=== PATIENT | male | born 1970 | race Caucasian/White ===

== ENCOUNTER 2023-08-22 15:22 | Inpatient (IN) | payer BC ==
[~2023-08-22] VITALS: Ht 193 cm; Wt 101.2 kg
[2023-08-22] VITALS (19 sets, daily range): BP systolic 124–159; BP diastolic 79–109
[~2023-08-22 15:22] MED LIST: Ativan1 MG PO; DIPH50 PO; EPIN.3I IM; METPRE4DP PO; Omeprazole20 M1; RANI150 PO; Viagra100 MG PO
[2023-08-22 16:00] LABS: PCO2 Venous 62 mmHg (38-42); pH Blood Venous 7.21 (7.34-7.37)
[2023-08-22 16:00] LABS: Calcium, Ionized (POC) 1.24 mmol/L (1.10-1.46); Chloride (POC) 103 mmol/L (98-108); Creatinine (POC) 1.1 mg/dL (0.8-1.3); Glucose (ISTAT POC) 105 mg/dL (70-99); Hemoglobin (POC) 18.4 g/dL (13.5-17.5); Potassium (POC) 4.2 mmol/L (3.5-5.5); Sodium (POC) 143 mmol/L (135-148); Total CO2 (POC) 28 mmol/L (21-32)
[2023-08-22 16:01] LABS: Base Excess Venous -3.2 mmol/L; Bicarbonate Venous 19.4 mmol/L (24.0-30.0)
[2023-08-22 16:06] LABS: BASOPHILS ABSOLUTE AUTO 0.04 K/mm3 (0.00-0.23); BASOPHILS PERCENT AUTO 1 % (0-2); EOSINOPHILS ABSOLUTE AUTO 0.16 K/mm3 (0.00-0.68); EOSINOPHILS PERCENT AUTO 2 % (0-6); Hemoglobin 18.9 g/dL (13.5-17.5); IMMATURE GRAN ABSOLUTE AUTO 0.03 K/mm3 (0.00-0.10); IMMATURE GRAN PERCENT AUTO 0 % (0-1); LYMPHOCYTES ABSOLUTE AUTO 2.68 K/mm3 (0.84-5.20); LYMPHOCYTES PERCENT AUTO 32 % (21-46); MONOCYTES ABSOLUTE AUTO 0.68 K/mm3 (0.16-1.47); MONOCYTES PERCENT AUTO 8 % (4-13); Mean Corpuscular HGB 31.6 pg (26.0-34.0); Mean Corpuscular Volume 90 fL (80-100); Mean Platelet Volume 10.2 fL (9.1-12.4); NEUTROPHILS ABSOLUTE AUTO 4.67 K/mm3 (1.96-9.15); NEUTROPHILS PERCENT AUTO 57 % (41-73); Platelet Count 152 K/mm3 (150-400); RDW Coefficient Variation 12.1 % (11.7-14.2); RDW Standard Deviation 39.5 fL (35.1-46.3); Red Blood Cell Count 5.99 M/mm3 (4.30-5.90); White Blood Cell Count 8.26 K/mm3 (4.00-11.30)
[2023-08-22 16:30] LABS: Albumin, Blood 4.3 g/dL (3.4-5.0); Bilirubin, Total 0.7 mg/dL (0.1-1.0); Bun/Creatinine Ratio 19.3 (12.0-20.0); Calcium, Blood 9.7 mg/dL (8.5-10.1); Creatinine, Blood 0.98 mg/dL (0.60-1.20); Globulin, Blood 4.5 g/dL (2.2-4.0); Potassium, Blood 4.6 mmol/L (3.5-5.5); Total Protein, Blood 8.8 g/dL (6.4-8.2)
[2023-08-22] MEDS ORDERED: Ventolin/Proventil INH (16:45)
[2023-08-22] MEDS ORDERED: BUSPIRONE HCL30 M1 PO (16:46)
[2023-08-22] MEDS ORDERED: Advair Diskus 250-50 INH (16:47)
[2023-08-22] MEDS ORDERED: LOSA25 PO (16:48)
--- NOTE | 2023-08-22 17:10 | NUR ---
CARE ASSUMPTION PT ARRIVING TO ICU 4 FROM PILE OPERATOR. PT IS AWAKE ALERT/ORIENTED. PT DENYING ANY CHEST PAIN OR PRESSURE AT THIS TIME. PT'S SPO2 >94% ON RM AIR. MONITOR SHOWING SR 80'S W ST ELEVATION. BP ELEVATED 140'S/100'S. PT HAS TR BAND IN PLACE ON R RADIAL THAT IS C/D/I W 12ML AIR INFLATED.
--- NOTE | 2023-08-22 18:18 | NUR ---
"Spiritual Care | Nurse Request This dam worker was called to the ED to support a young family member of the Pt. Pt. had been stablized by the time this dam worker arrived. Sat with Pts. daughter and facilitated a life review in the ED consult room until her mother arrived. When mother arrived this dam worker escorted the family to see the Pt. and then follow the Pt. to the [employer] where they waited in the waiting area. When Pts. father (a battery test engineer) arrived, we prayed with the family. This dam worker left the Pts. father take the lead of spiritual care. Family verbalized gratitude for the spiritual care visit."
--- NOTE | 2023-08-22 18:33 | NUR ---
DAY SHIFT SUMMARY PT ARRIVED TO ICU AT 1709 FROM THE SENIOR STRATEGY MANAGER. PT HAS DENIED ANY CP OR PRESSURE SINCE ARRIVAL. BP REMAINS ELEVATED W DBP IN THE 100'S. MONITOR SHOWING SR 70'S-80'S W NO ECTOPY. SPO2 >92% ON RM AIR. PT HAS REMANIED ALERT AND ORIENTED SINCE ARRIVAL COMMUNICATING APPROPRIATELY W STAFF. PT STARTED ON CARDIAC DIET PER DR. WINTER AND GIVEN WATER. NS RUNNING AT 200ML/HR X [address] SETH. PT HAS FAMILY AT BEDSIDE AND DENIES ANY FURTHER NEEDS AT THIS TIME. WILL REPORT TO ONCOMING RN.
--- NOTE | 2023-08-22 19:39 | NUR ---
ASSUMED CARE PT IS A&O X4; SPO2 >92% ON RA; MAP >65; RATE IN THE 60'S. PT DENIES CP OR NAUSEA. STATES THAT HE FELT "SLIGHT SHORTNESS OF BREATH" W/ EXERTION AND THAT PT WAS FEELING "MILD" PAIN IN RIBS. OTHERWISE RESTING W/ FAMILY AT BEDSIDE. 10ML IN TR BAND AT START OF SHIFT PER MAGDA OBREGON. ASPIRATING AIR PER ORDER.
[2023-08-23] VITALS (17 sets, daily range): BP systolic 103–165; BP diastolic 60–102
--- NOTE | 2023-08-23 03:39 | NUR ---
UPDATE IN TO DO AM EKG, PT INFORMED THIS RN THAT HE WAS EXPERIENCING 3/10 CP STARTING "A BIT BEFORE MIDNIGHT". STATED "DIDN'T THINK IT WAS WORTH MENTIONING". PT GIVEN 1 NITROGLYCERIN TABLET AT THIS TIME.
--- NOTE | 2023-08-23 03:55 | NUR ---
UPDATE SECOND DOSE OF NITROGLYCERIN GIVEN W/ NO CHANGE IN PAIN. PT COMPLAINING OF LIGHTHEADEDNESS AND NAUSEA SO 3RD DOSE HELD. TYLENOL GIVEN AND PALPATION OF CHEST PERFORMED AGAIN; PT STATES "I THINK IT'S FROM WHEN THEY SHOCKED ME".
[2023-08-23 03:58] LABS: BASOPHILS ABSOLUTE AUTO 0.03 K/mm3 (0.00-0.23); BASOPHILS PERCENT AUTO 0 % (0-2); EOSINOPHILS ABSOLUTE AUTO 0.23 K/mm3 (0.00-0.68); EOSINOPHILS PERCENT AUTO 2 % (0-6); Hematocrit 41.9 % (37.0-53.0); Hemoglobin 15.2 g/dL (13.5-17.5); IMMATURE GRAN ABSOLUTE AUTO 0.05 K/mm3 (0.00-0.10); IMMATURE GRAN PERCENT AUTO 1 % (0-1); LYMPHOCYTES ABSOLUTE AUTO 1.48 K/mm3 (0.84-5.20); LYMPHOCYTES PERCENT AUTO 14 % (21-46); MONOCYTES PERCENT AUTO 9 % (4-13); Mean Corpuscular HGB 31.7 pg (26.0-34.0); Mean Corpuscular HGB Conc 36.3 g/dL (31.5-36.5); Mean Corpuscular Volume 88 fL (80-100); Mean Platelet Volume 10.1 fL (9.1-12.4); NEUTROPHILS PERCENT AUTO 74 % (41-73); Platelet Count 218 K/mm3 (150-400); RDW Coefficient Variation 12.3 % (11.7-14.2); RDW Standard Deviation 39.6 fL (35.1-46.3); Red Blood Cell Count 4.79 M/mm3 (4.30-5.90); White Blood Cell Count 10.39 K/mm3 (4.00-11.30)
--- NOTE | 2023-08-23 04:23 | NUR ---
UPDATE PT STATES THAT TYLENOL HELPED REDUCE PAIN. WHEN ASKED PAIN RATING, PT STATED 3 INITIALLY AND 3 ON REASSESSMENT. CLARIFIED W/ PT AND PT STATED INITIALLY "PROBABLY MORE OF A 5" AND THAT THE PAIN IS DECREASED.
[2023-08-23 04:45] LABS: Albumin, Blood 3.2 g/dL (3.4-5.0); Albumin/Globulin Ratio 0.9 (0.8-1.8); Bilirubin, Total 0.8 mg/dL (0.1-1.0); Bun/Creatinine Ratio 21.8 (12.0-20.0); Calcium, Blood 8.7 mg/dL (8.5-10.1); Creatinine, Blood 0.87 mg/dL (0.60-1.20); Globulin, Blood 3.4 g/dL (2.2-4.0); Potassium, Blood 3.8 mmol/L (3.5-5.5)
[2023-08-23 05:15] LABS: Total Protein, Blood 6.6 g/dL (6.4-8.2)
--- NOTE | 2023-08-23 05:45 | NUR ---
SHIFT SUMMARY NO ACUTE EVENTS SINCE LAST NOTE. PT RESTING QUIETLY/SLEEPING AT THIS TIME. RATE IN THE 60-70'S; SPO2 >92% ON RA; MAP >65. TR BAND OFF; BRACE IN PLACE. SITE FREE OF OOZING AND HEMATOMA. SALINE LOCKED AT THIS TIME.
--- NOTE | 2023-08-23 06:17 | NUR ---
UPDATE PT DENYING CP AT THIS TIME.
--- NOTE | 2023-08-23 11:48 | NUR ---
AM SUMMARY: PT HAS BEEN A&Ox4, ANSWERING QUESTIONS APPROPRIATELY, ABLE TO MAKE NEEDS KNOWN. PT DENIES SOB, O2 SATS MAINTAINED >93% ON RA. PT DENIES CHEST PAIN T/OUT MORNING. PER REPORT, PT DID C/O CHEST PAIN AND WAS MEDICATED DURING NOC SHIFT, PAIN WAS REPRODUCABLE AND ALLEVIATED W/TYLENOL. R RADIAL SITE HAS BEEN RECOVERED AND IS WNL. PT INDEPENDENT IN ROOM, USING CALL LIGHT APPROPRIATELY. PT IS NOW PCU STATUS.
--- NOTE | 2023-08-23 17:31 | NUR ---
SHIFT/TRANSFER SUMMARY: NO ACUTE CHANGES TO PT CONDITION T/OUT THE SHIFT. PT CONTINUES A&Ox4, O2 SATS >93% ON RA, SR ON MONITOR W/RATE 60s-70s. PT INDEPENDENT IN ROOM, ARM BOARD CONTINUES IN PLACE, R RADIAL SITE WNL. PT RECEIVES NEW ROOM ASSIGNMENT. REPORT GIVEN TO MINDI GRANADOS TO RECEIVE PT. PT TRANSFERED TO [facility] VIA W/C W/OUT INCIDENT.
--- NOTE | 2023-08-23 18:25 | NUR ---
PT TRANSFERRED FROM ICU4 REPORT RECEIVED FROM MAGDA OBREGON. PT WANTED A SHOWER SOON PT GOT IN THE ROOM. RIGHT RADIAL SITE TEGADERM DRESSING PLACED BEFORE PT HEAD IN THE SHOWER, VITALS HRR SR 60'S, SBP 117, SATS ABOVE 95% ON RA, AFEBRILE. PT NOW SETTLED IN THE ROOM EATING DINNER. DENIES CHEST PAIN/PRESSURE. CALL LIGHTS IN REACH WILL REPORT TO ONCOMING SHIFT
[2023-08-24 03:57] VITALS: BP 111/75
[2023-08-24 04:45] LABS: BASOPHILS ABSOLUTE AUTO 0.05 K/mm3 (0.00-0.23); BASOPHILS PERCENT AUTO 1 % (0-2); EOSINOPHILS ABSOLUTE AUTO 0.38 K/mm3 (0.00-0.68); EOSINOPHILS PERCENT AUTO 4 % (0-6); Hematocrit 42.7 % (37.0-53.0); IMMATURE GRAN ABSOLUTE AUTO 0.03 K/mm3 (0.00-0.10); IMMATURE GRAN PERCENT AUTO 0 % (0-1); LYMPHOCYTES ABSOLUTE AUTO 2.33 K/mm3 (0.84-5.20); LYMPHOCYTES PERCENT AUTO 27 % (21-46); MONOCYTES ABSOLUTE AUTO 0.73 K/mm3 (0.16-1.47); MONOCYTES PERCENT AUTO 9 % (4-13); Mean Corpuscular HGB 30.8 pg (26.0-34.0); Mean Corpuscular HGB Conc 35.1 g/dL (31.5-36.5); Mean Corpuscular Volume 88 fL (80-100); Mean Platelet Volume 9.7 fL (9.1-12.4); NEUTROPHILS ABSOLUTE AUTO 5.06 K/mm3 (1.96-9.15); NEUTROPHILS PERCENT AUTO 59 % (41-73); Platelet Count 203 K/mm3 (150-400); RDW Coefficient Variation 12.3 % (11.7-14.2); RDW Standard Deviation 39.5 fL (35.1-46.3); Red Blood Cell Count 4.87 M/mm3 (4.30-5.90); White Blood Cell Count 8.58 K/mm3 (4.00-11.30)
[2023-08-24 05:14] LABS: Bun/Creatinine Ratio 20.4 (12.0-20.0); Calcium, Blood 8.6 mg/dL (8.5-10.1); Creatinine, Blood 0.88 mg/dL (0.60-1.20)
--- NOTE | 2023-08-24 05:16 | NUR ---
SHIFT SUMMARY ASSUMED CARE OF PT AT 1900. PT IS A/OX4. HEART SOUNDS REGULAR. LUNG SOUNDS CLEAR. PT WORE CPAP T/O THE NOC. PT WAS INDEPENDNT TO BATHROOM. PT STATES THAT HE HAS EPISODES WHEN HIS HEART FLUTTERS AND HIS LIMBS GO NUMB, EVEN BEFORE HIS HEART ATTACK BUT NO ACUTE EVENTS TONIGHT. ANGIO SITE C/D/I, NO SWELLING. PT SLEPT T/O THE NOC.
[2023-08-24 08:31] VITALS: BP 124/75
--- NOTE | 2023-08-24 10:52 | NUR ---
Pt. is sitting up in a chair and is awake when he welcomes my visit. Spouse is present. Pt. verbalized his experience of coming to the hospital where he experienced his heart attack. 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 Considered matters of family and the impact of medical trauma. Pt. displayed evidence of being strong, aware and engaged. Pt, verbalizes the expectation that he will be discharged today and verbalized gratitude for the spiritual care visit.
[2023-08-24] MEDS ORDERED: ASPI81CH PO (11:01)
[2023-08-24] MEDS ORDERED: ATOR40TA PO (11:02)
[2023-08-24] MEDS ORDERED: METO50ER PO (11:02)
[2023-08-24] MEDS ORDERED: TICA90TA PO (11:03)
[2023-08-24] MEDS ORDERED: Nitrostat0.4 MG SL (11:03)
--- NOTE | 2023-08-24 11:39 | NUR ---
DISCHARGE: PT HAS BEEN CLEARED FOR DISCHARGE. ALL IV ACCESS HAS BEEN DC'd WNL. PT DRESSES SELF. DC PAPERWORK AND INSTRUCTIONS HAVE BEEN PROVIDED AND REVIEWED W/PT AND SPOUSE, BOTH V/U. PT AMBULATES FROM DEPARTMENT W/OUT INCIDENT.
== END 2023-08-24 11:21 | disposition home or self-care (01) | DRG 321 ==
LOC: ER 15:22 → PCU 16:37 → ICUE 16:37 → PCU 08-23 17:25
PROVIDERS: Emergency Medicine; Physician Assistant; ADMIT Family Medicine
PROC: 027034Z Dilation of Coronary Artery, One Artery with Drug-eluting Intraluminal Device, Percutaneous Approach (ICD-10-PCS; principal; 2023-08-22)
PROC: B2111ZZ Fluoroscopy of Multiple Coronary Arteries using Low Osmolar Contrast (ICD-10-PCS; 2023-08-22)
PROC: 4A023N7 Measurement of Cardiac Sampling and Pressure, Left Heart, Percutaneous Approach (ICD-10-PCS; 2023-08-22)
DX: I21.09 ST elevation (STEMI) myocardial infarction involving other coronary artery of anterior wall (principal); I49.01 Ventricular fibrillation; E87.20 Acidosis, unspecified; I10 Essential (primary) hypertension; F41.9 Anxiety disorder, unspecified; J45.909 Unspecified asthma, uncomplicated; K21.9 Gastro-esophageal reflux disease without esophagitis; G47.33 Obstructive sleep apnea (adult) (pediatric); Z91.018 Allergy to other foods; Z91.013 Allergy to seafood; Z79.899 Other long term (current) drug therapy; Z87.19 Personal history of other diseases of the digestive system
CPT/HCPCS: 36415; 76937; 80047; 80048; 80053; 82803; 83690; 83735; 84484; 85014; 85025; 93005; 93010; 93306; 93454; 94640; 94660; 94664; 94762; 99152; 99153; 99285-25; A9270; C1725; C1769; C1874; C1887; C1894; C9606; J0282; J1644; J1650; J2250; J2405; J3010; J3246; J7030; J7050; J7060; Q9967

== ENCOUNTER 2023-09-23 22:45 | Emergency (ER) | payer BC ==
[~2023-09-23] VITALS: Ht 193 cm; Wt 102.1 kg
[~2023-09-23 22:45] MED LIST changes: +ASPI81CH PO; +ATOR40TA PO; +Advair Diskus 250-50 INH; +BUSPIRONE HCL30 M1 PO; +LOSA25 PO; +METO50ER PO; +Nitrostat0.4 MG SL; +OMEP20ER PO; -Omeprazole20 M1; +TICA90TA PO; +Ventolin/Proventil INH
[2023-09-23] MEDS ORDERED: METOPROLOL TART5010 PO (23:02)
[2023-09-23 23:27] LABS: BASOPHILS ABSOLUTE AUTO 0.03 K/mm3 (0.00-0.23); BASOPHILS PERCENT AUTO 0 % (0-2); EOSINOPHILS ABSOLUTE AUTO 0.24 K/mm3 (0.00-0.68); EOSINOPHILS PERCENT AUTO 3 % (0-6); Hematocrit 44.6 % (37.0-53.0); Hemoglobin 15.6 g/dL (13.5-17.5); IMMATURE GRAN ABSOLUTE AUTO 0.02 K/mm3 (0.00-0.10); IMMATURE GRAN PERCENT AUTO 0 % (0-1); LYMPHOCYTES ABSOLUTE AUTO 3.17 K/mm3 (0.84-5.20); LYMPHOCYTES PERCENT AUTO 45 % (21-46); MONOCYTES ABSOLUTE AUTO 0.57 K/mm3 (0.16-1.47); MONOCYTES PERCENT AUTO 8 % (4-13); Mean Corpuscular HGB 31.3 pg (26.0-34.0); Mean Corpuscular Volume 89 fL (80-100); Mean Platelet Volume 9.8 fL (9.1-12.4); NEUTROPHILS ABSOLUTE AUTO 2.95 K/mm3 (1.96-9.15); NEUTROPHILS PERCENT AUTO 42 % (41-73); Platelet Count 204 K/mm3 (150-400); RDW Coefficient Variation 12.5 % (11.7-14.2); RDW Standard Deviation 41.3 fL (35.1-46.3); Red Blood Cell Count 4.99 M/mm3 (4.30-5.90); White Blood Cell Count 6.98 K/mm3 (4.00-11.30)
[2023-09-23 23:45] LABS: Albumin, Blood 4.1 g/dL (3.4-5.0); Albumin/Globulin Ratio 1.1 (0.8-1.8); Bilirubin, Total 0.8 mg/dL (0.1-1.0); Bun/Creatinine Ratio 18.3 (12.0-20.0); Calcium, Blood 9.3 mg/dL (8.5-10.1); Creatinine, Blood 0.98 mg/dL (0.60-1.20); Globulin, Blood 3.8 g/dL (2.2-4.0); Magnesium, Blood 2.1 mg/dL (1.6-2.4); Potassium, Blood 3.6 mmol/L (3.5-5.5); Total Protein, Blood 7.9 g/dL (6.4-8.2)
[2023-09-23] MEDS ORDERED: ChlordiazePOXIDE 25 MG Cap PO ONE (23:45)
[2023-09-24 01:45] VITALS: BP 147/97
[2023-09-24] MEDS ORDERED: CHLO25 PO (02:00)
== END 2023-09-24 02:07 | disposition home or self-care (01) ==
LOC: ER 22:45
PROVIDERS: Physician Assistant
DX: R07.9 Chest pain, unspecified (principal); F10.239 Alcohol dependence with withdrawal, unspecified; Z91.013 Allergy to seafood; Z91.018 Allergy to other foods; Z79.899 Other long term (current) drug therapy; Z79.82 Long term (current) use of aspirin
CPT/HCPCS: 71046; 80053; 83735; 84484; 85025; 93005; 93010; 99284-25; A9270

== ENCOUNTER 2024-03-25 07:00 | Emergency (ER) | payer BC ==
[~2024-03-25] VITALS: Ht 193 cm; Wt 97.1 kg
[~2024-03-25 07:00] MED LIST changes: +CHLO25 PO; +METOPROLOL TART5010 PO
[2024-03-25] MEDS ORDERED: HydrALAZINE HCl 20 MG / ML 1ML Vial IV ONE (07:20)
[2024-03-25] MEDS ORDERED: Ondansetron HCl 2 MG / ML 2ML Vial IV ONE (07:20)
[2024-03-25 07:44] LABS: BASOPHILS ABSOLUTE AUTO 0.02 K/mm3 (0.00-0.23); BASOPHILS PERCENT AUTO 0 % (0-2); EOSINOPHILS PERCENT AUTO 4 % (0-6); Hematocrit 44.6 % (37.0-53.0); Hemoglobin 15.5 g/dL (13.5-17.5); IMMATURE GRAN ABSOLUTE AUTO 0.01 K/mm3 (0.00-0.10); IMMATURE GRAN PERCENT AUTO 0 % (0-1); LYMPHOCYTES ABSOLUTE AUTO 2.41 K/mm3 (0.84-5.20); LYMPHOCYTES PERCENT AUTO 44 % (21-46); MONOCYTES ABSOLUTE AUTO 0.49 K/mm3 (0.16-1.47); MONOCYTES PERCENT AUTO 9 % (4-13); Mean Corpuscular HGB 31.6 pg (26.0-34.0); Mean Corpuscular HGB Conc 34.8 g/dL (31.5-36.5); Mean Corpuscular Volume 91 fL (80-100); NEUTROPHILS ABSOLUTE AUTO 2.32 K/mm3 (1.96-9.15); NEUTROPHILS PERCENT AUTO 43 % (41-73); Platelet Count 207 K/mm3 (150-400); RDW Coefficient Variation 12.4 % (11.7-14.2); RDW Standard Deviation 41.1 fL (35.1-46.3); Red Blood Cell Count 4.91 M/mm3 (4.30-5.90); White Blood Cell Count 5.45 K/mm3 (4.00-11.30)
[2024-03-25 08:18] LABS: Albumin, Blood 3.7 g/dL (3.4-5.0); Bilirubin, Total 0.3 mg/dL (0.1-1.0); Bun/Creatinine Ratio 21.2 (12.0-20.0); Calcium, Blood 8.7 mg/dL (8.5-10.1); Creatinine, Blood 0.85 mg/dL (0.60-1.20); Globulin, Blood 3.8 g/dL (2.2-4.0); Potassium, Blood 3.8 mmol/L (3.5-5.5); Total Protein, Blood 7.5 g/dL (6.4-8.2)
[2024-03-25 10:30] VITALS: BP 142/88
== END 2024-03-25 10:31 | disposition home or self-care (01) ==
LOC: ER 07:00
PROVIDERS: Emergency Medicine
DX: R07.89 Other chest pain (principal); I10 Essential (primary) hypertension; J45.909 Unspecified asthma, uncomplicated; G47.30 Sleep apnea, unspecified; Z79.82 Long term (current) use of aspirin; Z79.899 Other long term (current) drug therapy; Z91.013 Allergy to seafood; Z91.018 Allergy to other foods
CPT/HCPCS: 71045; 80053; 84484; 85025; 93005; 93010; 96374; 96375; 99285-25; J0360; J2405

== ENCOUNTER 2024-07-08 01:35 | Emergency (ER) | payer BC ==
[~2024-07-08] VITALS: Ht 193 cm; Wt 96.6 kg
[2024-07-08 01:59] LABS: BASOPHILS ABSOLUTE AUTO 0.04 K/mm3 (0.00-0.23); BASOPHILS PERCENT AUTO 1 % (0-2); EOSINOPHILS PERCENT AUTO 3 % (0-6); Hematocrit 47.4 % (37.0-53.0); Hemoglobin 16.6 g/dL (13.5-17.5); IMMATURE GRAN ABSOLUTE AUTO 0.03 K/mm3 (0.00-0.10); IMMATURE GRAN PERCENT AUTO 0 % (0-1); LYMPHOCYTES ABSOLUTE AUTO 3.12 K/mm3 (0.84-5.20); LYMPHOCYTES PERCENT AUTO 41 % (21-46); MONOCYTES ABSOLUTE AUTO 0.65 K/mm3 (0.16-1.47); MONOCYTES PERCENT AUTO 8 % (4-13); Mean Corpuscular HGB 31.7 pg (26.0-34.0); Mean Corpuscular Volume 91 fL (80-100); Mean Platelet Volume 9.8 fL (9.1-12.4); NEUTROPHILS ABSOLUTE AUTO 3.66 K/mm3 (1.96-9.15); NEUTROPHILS PERCENT AUTO 48 % (41-73); Platelet Count 229 K/mm3 (150-400); RDW Coefficient Variation 12.1 % (11.7-14.2); RDW Standard Deviation 40.1 fL (35.1-46.3); Red Blood Cell Count 5.24 M/mm3 (4.30-5.90)
[2024-07-08 02:13] LABS: Albumin, Blood 4.1 g/dL (3.4-5.0); Albumin/Globulin Ratio 1.1 (0.8-1.8); Bilirubin, Total 0.6 mg/dL (0.1-1.0); Bun/Creatinine Ratio 13.2 (12.0-20.0); Creatinine, Blood 1.14 mg/dL (0.60-1.20); Globulin, Blood 3.8 g/dL (2.2-4.0); Magnesium, Blood 2.2 mg/dL (1.6-2.4); Potassium, Blood 3.7 mmol/L (3.5-5.5); Total Protein, Blood 7.9 g/dL (6.4-8.2)
[2024-07-08 04:45] VITALS: BP 117/82
== END 2024-07-08 05:02 | disposition home or self-care (01) ==
LOC: ER 01:35
PROVIDERS: Student in an Organized Health Care Education/Training Program
DX: R00.2 Palpitations (principal); R07.89 Other chest pain; I25.10 Atherosclerotic heart disease of native coronary artery without angina pectoris; I25.2 Old myocardial infarction; I10 Essential (primary) hypertension; J45.909 Unspecified asthma, uncomplicated; G47.30 Sleep apnea, unspecified; Z91.013 Allergy to seafood; Z91.018 Allergy to other foods; Z79.82 Long term (current) use of aspirin; Z79.899 Other long term (current) drug therapy
CPT/HCPCS: 71045; 80053; 83735; 84484; 85025; 93005; 93010; 99285-25

== ENCOUNTER 2024-08-16 14:02 | Emergency (ER) | payer BC ==
[~2024-08-16] VITALS: Ht 193 cm; Wt 94.3 kg
[2024-08-16 14:59] LABS: BASOPHILS ABSOLUTE AUTO 0.04 K/mm3 (0.00-0.23); BASOPHILS PERCENT AUTO 1 % (0-2); EOSINOPHILS ABSOLUTE AUTO 0.17 K/mm3 (0.00-0.68); EOSINOPHILS PERCENT AUTO 3 % (0-6); Hematocrit 43.7 % (37.0-53.0); Hemoglobin 15.7 g/dL (13.5-17.5); IMMATURE GRAN ABSOLUTE AUTO 0.01 K/mm3 (0.00-0.10); IMMATURE GRAN PERCENT AUTO 0 % (0-1); LYMPHOCYTES ABSOLUTE AUTO 2.19 K/mm3 (0.84-5.20); LYMPHOCYTES PERCENT AUTO 40 % (21-46); MONOCYTES ABSOLUTE AUTO 0.35 K/mm3 (0.16-1.47); MONOCYTES PERCENT AUTO 6 % (4-13); Mean Corpuscular HGB 31.4 pg (26.0-34.0); Mean Corpuscular HGB Conc 35.9 g/dL (31.5-36.5); Mean Corpuscular Volume 87 fL (80-100); Mean Platelet Volume 9.6 fL (9.1-12.4); NEUTROPHILS ABSOLUTE AUTO 2.75 K/mm3 (1.96-9.15); NEUTROPHILS PERCENT AUTO 50 % (41-73); Platelet Count 225 K/mm3 (150-400); RDW Coefficient Variation 12.2 % (11.7-14.2); RDW Standard Deviation 39.2 fL (35.1-46.3); White Blood Cell Count 5.51 K/mm3 (4.00-11.30)
[2024-08-16 15:24] LABS: Albumin, Blood 3.9 g/dL (3.4-5.0); Bilirubin, Total 0.8 mg/dL (0.1-1.0); Bun/Creatinine Ratio 13.9 (12.0-20.0); Calcium, Blood 9.2 mg/dL (8.5-10.1); Creatinine, Blood 1.15 mg/dL (0.60-1.20); Globulin, Blood 3.9 g/dL (2.2-4.0); Total Protein, Blood 7.8 g/dL (6.4-8.2)
[2024-08-16 15:52] VITALS: BP 156/78
== END 2024-08-16 15:52 | disposition home or self-care (01) ==
LOC: ER 14:02
PROVIDERS: Physician Assistant
DX: R00.2 Palpitations (principal); Z88.8 Allergy status to other drugs, medicaments and biological substances; Z91.018 Allergy to other foods; Z79.899 Other long term (current) drug therapy; Z79.82 Long term (current) use of aspirin; I10 Essential (primary) hypertension; J45.909 Unspecified asthma, uncomplicated; G47.30 Sleep apnea, unspecified
CPT/HCPCS: 80053; 84484; 85025; 93005; 93010; 99285-25